=== PATIENT | male | born 1975 | race Caucasian/White ===

== ENCOUNTER 2019-03-19 09:21 | Outpatient (CLI) | payer BC, OTHER, SELFPAY ==
--- NOTE | 2019-03-17 08:45 | XR_ITS ---
WS: [id number] KUB, 03/19/2019 Clinical Data: RENAL CALCULUS Comparison: KUB, 02/04/2019 Findings: No abnormal intraabdominal masses or calcifications are seen. There is no dilatated small bowel or ev idence of obstruction. Phleboliths are seen in the true pelvis. There is fecal material in the rectum. XR/XR KUB [id number] Impression: Negative KUB.
== END 2019-03-19 09:22 | disposition home or self-care (01) ==
LOC: RAD 09:25
PROVIDERS: Family Provider Nurse Practitioner; PCP Urology; Visit Provider Urology
DX: N20.0 Calculus of kidney (principal)
CPT/HCPCS: 74018; 81001

== ENCOUNTER → 2023-02-04 14:33 | Outpatient (BNVA) | payer OTHER, SELFPAY | PROVIDERS: Family Provider Nurse Practitioner; PCP Urology; Visit Provider Nurse Practitioner Family | DX: M25.561 Pain in right knee (principal) | CPT/HCPCS: 73562 ==